=== PATIENT | female | born 1950 | race Two or more races ===

== ENCOUNTER 2024-10-18 17:56 | Inpatient (IN) | payer MEDICARE, OTHER ==
[~2024-10-18] VITALS: Ht 152.4 cm; Wt 73.0 kg
[2024-10-18] MEDS ORDERED: MAGN400O6 PO (18:18)
[2024-10-18] MEDS ORDERED: LOSA50TA39 PO (18:18)
[2024-10-18] MEDS ORDERED: MELA5TAB20 PO (18:18)
[2024-10-18] MEDS ORDERED: SERT50TA PO (18:18)
[2024-10-18] MEDS ORDERED: ATOR40TA PO (18:18)
[2024-10-18] MEDS ORDERED: HYDR12.55 PO (18:18)
[2024-10-18] MEDS ORDERED: ACET325C7 PO (18:18)
[2024-10-18] MEDS ORDERED: MULT-213 PO (18:18)
[2024-10-18] MEDS ORDERED: LEVO88TA5 PO (18:18)
[2024-10-18] MEDS ORDERED: FAMO20TA8 PO (18:18)
[2024-10-18] MEDS ORDERED: BUSP10TA3 PO (18:18)
[2024-10-18] MEDS ORDERED: DOCU100T2 PO (18:18)
[2024-10-18 18:33] LABS: BASOPHILS # (AUTO) 0.1 K/UL (0.0-0.2); BASOPHILS % (AUTO) 0.7 % (0.0-2.0); EOSINOPHILS # (AUTO) 0.5 K/uL (0.0-0.7); HEMATOCRIT 36.6 % (31.2-41.9); HEMOGLOBIN 12.2 g/dL (10.9-14.3); LYMPHOCYTES # (AUTO) 2.3 K/uL (0.8-4.8); LYMPHOCYTES % (AUTO) 24.7 % (20.5-51.5); MEAN CORPUSCULAR HGB CONC 33 g/dL (32.3-35.6); MONOCYTES % (AUTO) 10.5 % (0.0-11.0); NEUTROPHILS # (AUTO) 5.4 K/uL (1.8-8.9); NEUTROPHILS % (AUTO) 59.1 % (38.5-71.5); PLATELET COUNT (AUTO) 344 K/uL (179-408); RED BLOOD CELL COUNT(AUTO) 4.07 MIL/uL (3.63-4.92); WHITE BLOOD COUNT (AUTO) 9.1 K/uL (3.8-11.8)
[2024-10-18 18:50] LABS: DIFFERENTIAL COMMENT 1
[2024-10-18 18:53] LABS: CALCIUM 8.8 mg/dL (8.5-10.1); CARBON DIOXIDE 29 mmol/L (21-32); CHLORIDE 107 mmol/L (98-107); CREATININE 0.8 mg/dL (0.6-1.3); GLUCOSE 113 mg/dL (74-106); POTASSIUM 3.7 mmol/L (3.5-5.1); SODIUM SERUM 143 mmol/L (136-145); UREA NITROGEN, BLOOD 16 mg/dL (7-18)
[2024-10-18 18:58] LABS: ALANINE AMINOTRANSFERASE 40 U/L (14-59); ALBUMIN 3.3 g/dL (3.4-5.0); ALKALINE PHOSPHATASE 148 U/L (50-136); ASPARTATE AMINOTRANSFERASE 26 U/L (15-37); BILIRUBIN,DIRECT 0.1 mg/dL (0.0-0.2); BILIRUBIN,TOTAL 0.3 mg/dL (0.2-1.0); TOTAL PROTEIN, SERUM 6.8 g/dL (6.4-8.2)
[2024-10-18 19:01] LABS: ETHANOL < 3 MG/DL (0-10)
[2024-10-18 19:02] LABS: ACETAMINOPHEN < 2.0 ug/mL (10-30)
[2024-10-18 19:47] LABS: *BILIRUBIN,URIN NEGATIVE (NEGATIVE); *CLARITY,URINE CLEAR (CLEAR); *COLOR,URINE Other (YELLOW); *KETONES,URINE NEGATIVE (NEGATIVE); *PROTEIN,URINE NEGATIVE (NEGATIVE); *UROBILINOGEN,URINE 0.2 E.U./dl (NORMAL); LEUKOCYTE ESTERASE ,URINE 3+ (NEGATIVE); NITRITE, URINE NEGATIVE (NEGATIVE); PH,URINE 5.5 (5.0-8.0); UGLUCOSE NEGATIVE (NEGATIVE)
[2024-10-18 19:58] LABS: *AMPHETAMINE, URINE NEGATIVE (NEGATIVE); *BARBITURATE, URINE NEGATIVE (NEGATIVE); *BENZODIAZEPINE, URINE NEGATIVE (NEGATIVE); *CANNABINOID, URINE NEGATIVE (NEGATIVE); *COCCAINE, URINE NEGATIVE (NEGATIVE); *OPIATE, URINE NEGATIVE (NEGATIVE); *PHENCYCLIDINE SCREEN,URINE NEGATIVE (NEGATIVE); FENTANYL, URINE NEGATIVE (NEGATIVE)
[2024-10-18 20:03] LABS: *BLOOD, URINE TRACE (NEGATIVE)
[2024-10-18] MEDS ORDERED: LORAZEPAM 2 MG/1 ML VIAL ONE (20:06)
[2024-10-18] MEDS ORDERED: HALOPERIDOL LACTATE 5 MG/1 ML VIAL ONE (20:06)
[2024-10-18] MEDS ORDERED: diphenhydrAMINE 50 MG/1 ML VIAL ONE (20:06)
[2024-10-18 20:17] LABS: BACTERIA,URINE MODERATE /HPF (NONE SEEN); WBC,URINE 50-80 /HPF (0-3)
[2024-10-18] MEDS: diphenhydrAMINE 50 MG/1 ML VIAL IM ONE (20:17)
[2024-10-18] MEDS: HALOPERIDOL LACTATE 5 MG/1 ML VIAL IM ONE (20:17)
[2024-10-18] MEDS: LORAZEPAM 2 MG/1 ML VIAL IM ONE (20:17)
[2024-10-18] MEDS ORDERED: TEMAZEPAM 7.5 MG CAPSULE PO PRN (21:15)
[2024-10-18] MEDS ORDERED: LORAZEPAM 0.5 MG TABLET PO PRN (21:15)
[2024-10-18] MEDS ORDERED: MAGNESIUM HYDROXIDE 30 ML LIQUID UDC PO PRN (21:15)
[2024-10-18] MEDS ORDERED: MAG HYDROX/AL HYDROX/SIMETH 30 ML LIQUID UDC PO PRN (21:15)
[2024-10-18 22:00] VITALS: BP 138/69; TEMP 97.8; O2SAT 95
[2024-10-18] MEDS: BLOOD SUGAR DIAGNOSTIC 1 EACH STRIP VI ONE (22:04)
[2024-10-19 08:06] VITALS: BP 137/60; TEMP 98.1; O2SAT 97
[2024-10-19] MEDS ORDERED: ACET325T53 PO (08:46)
[2024-10-19] MEDS: DOCUSATE SODIUM 100 MG CAPSULE PO SCH (13:27)
[2024-10-19] MEDS: MULTIVITAMINS,THERAPEUTIC TABLET PO SCH (13:27)
[2024-10-19] MEDS: CEphaleXIN 500 MG CAPSULE PO SCH (15:45)
[2024-10-19] MEDS: busPIRone 5 MG TABLET PO SCH (16:45)
[2024-10-19 16:48] VITALS: BP 112/37; TEMP 98.1; O2SAT 99
[2024-10-19] MEDS: FAMOTIDINE 20 MG TABLET PO SCH (17:26)
[2024-10-19 19:55] VITALS: BP 130/55; TEMP 97.9; O2SAT 98
[2024-10-19] MEDS: ATORVASTATIN 40 MG TABLET PO SCH (21:39)
[2024-10-19] MEDS: QUETIAPINE FUMARATE 25 MG TABLET PO SCH (21:39)
[2024-10-20 07:48] VITALS: BP 116/53; TEMP 98; O2SAT 96
[2024-10-20] MEDS: LEVOTHYROXINE SODIUM 88 MCG TABLET PO SCH (08:31)
[2024-10-20] MEDS: LOSARTAN POTASSIUM 50 MG TABLET PO SCH (08:32)
[2024-10-20] MEDS: HYDROCHLOROTHIAZIDE 12.5 MG CAPSULE PO SCH (08:33)
[2024-10-20 15:04] VITALS: BP 115/56; TEMP 98; O2SAT 96
[2024-10-20] MEDS: LORAZEPAM 0.5 MG TABLET PO PRN (17:09)
[2024-10-20 20:06] VITALS: BP 128/56; TEMP 98.1; O2SAT 100
[2024-10-20] MEDS: MUPIROCIN 2% OINT 22 GM TUBE NS SCH (21:05)
[2024-10-20] MEDS: TEMAZEPAM 7.5 MG CAPSULE PO PRN (22:34)
[2024-10-21 07:45] VITALS: BP 97/59; TEMP 98; O2SAT 98
[2024-10-21] MEDS: QUETIAPINE FUMARATE 25 MG TABLET PO SCH ×3 (08:29→20:35)
[2024-10-21] MEDS: ACETAMINOPHEN 325 MG TABLET PO PRN (12:13)
[2024-10-21 14:45] VITALS: BP 108/65; TEMP 98; O2SAT 98
[2024-10-21 19:48] VITALS: BP 116/64; TEMP 98.1; O2SAT 98
[2024-10-22 08:04] VITALS: BP 185/111; TEMP 98; O2SAT 95
[2024-10-22 20:00] VITALS: BP 137/75; TEMP 97.9; O2SAT 91
[2024-10-23] MEDS: LEVOTHYROXINE SODIUM 75 MCG TABLET PO SCH (06:10)
[2024-10-23 07:09] LABS: FOLATE (FOLIC ACID), SERUM 13.1 ng/mL (>3.0)
[2024-10-23 08:31] VITALS: BP 140/71; TEMP 98.1; O2SAT 97
[2024-10-23 09:07] LABS: TRIIODOTHYRONINE, FREE 2.8 pg/mL (2.0-4.4)
[2024-10-23 16:31] VITALS: BP 102/69; TEMP 97.6; O2SAT 98
[2024-10-23 19:29] VITALS: BP 124/62; TEMP 97.8; O2SAT 98
[2024-10-24 07:30] VITALS: BP 101/52; TEMP 98; O2SAT 99
[2024-10-24] MEDS: ENSURE ENLIVE (VAN) 240 ML LIQUID PO SCH (08:47)
[2024-10-24] MEDS: QUETIAPINE FUMARATE 25 MG TABLET PO SCH ×2 (12:46→20:22)
[2024-10-24] MEDS: DIVALPROEX SPRINKLE 125 MG CAP.SPRINK PO SCH (12:46)
[2024-10-24 15:08] VITALS: BP 124/61; TEMP 98.2; O2SAT 98
[2024-10-24 19:47] VITALS: BP 112/62; TEMP 98.1; O2SAT 98
[2024-10-25 08:03] VITALS: BP 136/69; TEMP 98; O2SAT 98
[2024-10-25] MEDS ORDERED: MUPIROCIN 2% OINT 22 GM TUBE NS SCH (14:45)
[2024-10-25 15:21] VITALS: BP 110/63; TEMP 98; O2SAT 98
[2024-10-25] MEDS: DIVALPROEX SPRINKLE 125 MG CAP.SPRINK PO SCH (16:41)
[2024-10-25] MEDS: QUETIAPINE FUMARATE 25 MG TABLET PO SCH (20:35)
[2024-10-25 21:25] VITALS: BP 120/50; TEMP 98; O2SAT 98
[2024-10-26 08:04] VITALS: BP 138/71; TEMP 98; O2SAT 97
[2024-10-26] MEDS: QUETIAPINE FUMARATE 25 MG TABLET PO SCH (08:19)
[2024-10-26 13:08] LABS: BASOPHILS # (AUTO) 0.1 K/UL (0.0-0.2); BASOPHILS % (AUTO) 1.1 % (0.0-2.0); EOSINOPHILS # (AUTO) 0.5 K/uL (0.0-0.7); EOSINOPHILS % (AUTO) 7.5 % (0.0-7.0); HEMATOCRIT 40.9 % (31.2-41.9); HEMOGLOBIN 13.5 g/dL (10.9-14.3); LYMPHOCYTES # (AUTO) 1.7 K/uL (0.8-4.8); LYMPHOCYTES % (AUTO) 26.2 % (20.5-51.5); MEAN CORPUSCULAR HEMOGLOBIN 29.8 uug (24.7-32.8); MEAN CORPUSCULAR HGB CONC 33 g/dL (32.3-35.6); MONOCYTES # (AUTO) 0.5 K/uL (0.1-1.30); MONOCYTES % (AUTO) 8.3 % (0.0-11.0); NEUTROPHILS # (AUTO) 3.7 K/uL (1.8-8.9); NEUTROPHILS % (AUTO) 56.9 % (38.5-71.5); PLATELET COUNT (AUTO) 325 K/uL (179-408); RED BLOOD CELL COUNT(AUTO) 4.54 MIL/uL (3.63-4.92); RED CELL DISTRIBUTION WIDTH 14.4 % (12.3-17.7); WHITE BLOOD COUNT (AUTO) 6.6 K/uL (3.8-11.8)
[2024-10-26 13:28] LABS: ALANINE AMINOTRANSFERASE 27 U/L (14-59); ALBUMIN 2.9 g/dL (3.4-5.0); ALKALINE PHOSPHATASE 125 U/L (50-136); ASPARTATE AMINOTRANSFERASE 24 U/L (15-37); BILIRUBIN,TOTAL 0.6 mg/dL (0.2-1.0); CALCIUM 9.1 mg/dL (8.5-10.1); CARBON DIOXIDE 31 mmol/L (21-32); CHLORIDE 107 mmol/L (98-107); CREATININE 0.8 mg/dL (0.6-1.3); GLUCOSE 95 mg/dL (74-106); MAGNESIUM 2.2 mg/dL (1.8-2.4); POTASSIUM 4.1 mmol/L (3.5-5.1); SODIUM SERUM 145 mmol/L (136-145); TOTAL PROTEIN, SERUM 6.4 g/dL (6.4-8.2); UREA NITROGEN, BLOOD 19 mg/dL (7-18)
[2024-10-26 16:14] VITALS: BP 110/67; TEMP 98.3; O2SAT 99
[2024-10-26 19:42] VITALS: BP 121/66; TEMP 98.1; O2SAT 98
[2024-10-26] MEDS: QUETIAPINE FUMARATE 25 MG TABLET PO PRN (22:02)
[2024-10-27 08:43] VITALS: BP 126/69; TEMP 98.2; O2SAT 99
[2024-10-27 15:25] VITALS: BP 100/63; TEMP 98; O2SAT 99
[2024-10-27 19:37] VITALS: BP_SYST 147; BP_SYST 154; BP_DIAS 80; BP_DIAS 82; TEMP 98; O2SAT 98; O2SAT 99
[2024-10-28 07:30] VITALS: BP 135/60; TEMP 98; O2SAT 97
[2024-10-28 16:50] VITALS: BP 137/67; TEMP 98.1; O2SAT 96
[2024-10-28 19:56] VITALS: BP 130/64; TEMP 98; O2SAT 96
[2024-10-28] MEDS: MELATONIN 3 MG TABLET PO SCH (20:44)
[2024-10-29 08:04] VITALS: BP 115/55; TEMP 98.1; O2SAT 97
[2024-10-29] MEDS ORDERED: diphenhydrAMINE 25 MG/10 ML UDC NG PRN (14:15)
[2024-10-29] MEDS: diphenhydrAMINE 25 MG CAP PO PRN (14:21)
[2024-10-29 16:34] VITALS: BP 130/59; TEMP 98; O2SAT 97
[2024-10-29] MEDS: HYDROCORTISONE 1% OINT 28.35 GM TUBE TOP SCH (17:04)
[2024-10-29 20:05] VITALS: BP 137/78; TEMP 98.1; O2SAT 97
[2024-10-30 08:04] VITALS: BP 104/56; TEMP 98.5; O2SAT 99
[2024-10-30 16:22] VITALS: BP 127/58; TEMP 98.6; O2SAT 98
[2024-10-30 20:16] VITALS: BP 126/60; TEMP 98.2; O2SAT 98
[2024-10-30] MEDS: DIVALPROEX 250 MG TABLET.DR PO SCH (21:17)
[2024-10-31 07:47] VITALS: BP 130/49; TEMP 98; O2SAT 96
[2024-10-31] MEDS: DIVALPROEX SPRINKLE 125 MG CAP.SPRINK PO SCH (08:10)
[2024-10-31 08:11] VITALS: BP 130/49
== END 2024-10-31 12:11 | DRG 885 ==
LOC: ER 17:56 → GPS 20:45
PROVIDERS: ADMIT Psychiatry & Neurology Psychosomatic Medicine; ATTEND Nurse Practitioner Acute Care
DX: F29 Unspecified psychosis not due to a substance or known physiological condition (principal); G93.41 Metabolic encephalopathy; N39.0 Urinary tract infection, site not specified; E44.1 Mild protein-calorie malnutrition; D68.59 Other primary thrombophilia; E44.0 Moderate protein-calorie malnutrition; F03.93 Unspecified dementia, unspecified severity, with mood disturbance; E66.01 Morbid (severe) obesity due to excess calories; Z68.33 Body mass index [BMI] 33.0-33.9, adult; F43.10 Post-traumatic stress disorder, unspecified; E03.9 Hypothyroidism, unspecified; Z22.322 Carrier or suspected carrier of Methicillin resistant Staphylococcus aureus; K21.9 Gastro-esophageal reflux disease without esophagitis; I10 Essential (primary) hypertension; E78.00 Pure hypercholesterolemia, unspecified; E05.90 Thyrotoxicosis, unspecified without thyrotoxic crisis or storm; Z62.819 Personal history of unspecified abuse in childhood; E88.09 Other disorders of plasma-protein metabolism, not elsewhere classified
CPT/HCPCS: 36415; 80164; 82746; 83735; 83921; 84443; 84481; 85025; 87086; G0480; J1200; J1630; J2060; J3490; Q0163